=== PATIENT | male | born 1990 | race Hispanic/Latino ===

== ENCOUNTER → 2024-11-28 | Outpatient (CLI) | payer OTHER ==
[~2024-11-28] MED LIST: CAPE150T18 PO; CAPE1TAB2 PO
== END ==
LOC: M ONCR 08:05
PROVIDERS: ATTEND General Practice
DX: C20 Malignant neoplasm of rectum (principal); Z79.899 Other long term (current) drug therapy

== ENCOUNTER → 2024-12-22 | Outpatient (RCR) | payer OTHER | LOC: M ONCR 11-28 08:49 | PROVIDERS: ATTEND General Practice | DX: Z51.0 Encounter for antineoplastic radiation therapy (principal); C20 Malignant neoplasm of rectum ==

== ENCOUNTER 2025-01-10 10:24 | Outpatient (RCR) | payer OTHER ==
[~2025-01-10 10:24] MED LIST changes: +OXYC-517 PO; +TAMS1CAP17 PO
[2025-01-14] MEDS ORDERED: PYRI1TAB5 PO (18:27)
== END 2025-01-21 ==
LOC: M ONCR 10:24
PROVIDERS: ATTEND General Practice
DX: Z51.0 Encounter for antineoplastic radiation therapy (principal); C20 Malignant neoplasm of rectum

== ENCOUNTER 2025-01-14 14:09 | Emergency (ER) | payer OTHER ==
[~2025-01-14] VITALS: Ht 182.9 cm; Wt 89.0 kg
[2025-01-14 16:28] LABS: Trichomonas vaginalis (AMP) NOT DETECTED (NEGATIVE)
[2025-01-14 16:51] LABS: GC DNA AMPLIFICATION NEGATIVE (NEGATIVE)
[2025-01-14] MEDS: PHENAZOPYRIDINE 100 MG TAB PO ONE (17:25)
[2025-01-14 17:29] LABS: KETONE, URINE AUTO RFX NEGATIVE (NEGATIVE); LEUKOCYTE ESTERASE UR AUTO RFX NEGATIVE (NEGATIVE); MUCUS, URINE RFX MODERATE (NEGATIVE); NITRITE, URINE AUTO RFX NEGATIVE (NEGATIVE); RBC, URINE AUTO RFX 3 /HPF (0-3); SQUAM EPITHELIAL CELL UR AURFX 0 /HPF (0-6); WBC, URINE AUTO RFX 2 /HPF (0-3)
[2025-01-14 18:19] VITALS: BP 121/76; TEMP 98; O2SAT 99
[2025-01-14] MEDS ORDERED: PYRI1TAB5 PO (18:27)
== END 2025-01-14 18:33 | disposition home or self-care (01) ==
LOC: M ED 14:09
DX: R30.0 Dysuria (principal); C18.9 Malignant neoplasm of colon, unspecified; Z92.3 Personal history of irradiation; Z79.899 Other long term (current) drug therapy

== ENCOUNTER → 2025-02-09 | Outpatient (CLI) | payer OTHER ==
[~2025-02-09] MED LIST changes: +PYRI1TAB5 PO
== END ==
LOC: M ONCR 12:53
PROVIDERS: ATTEND General Practice
DX: Z08 Encounter for follow-up examination after completed treatment for malignant neoplasm (principal)